=== PATIENT | male | born 1995 | race African-American/Black ===

== ENCOUNTER 2018-09-23 18:45 | Emergency (ER) | payer MEDICAID ==
[~2018-09-23] VITALS: Ht 172.7 cm; Wt 68.2 kg
[2018-09-23] MEDS ORDERED: LIDOCAINE-MPF 1%, 5ML ONE (18:57)
[2018-09-23] MEDS ORDERED: DIPH,PERTUSS(ACELL),TET VAC/PF 0.5 ML IM-VACC ONE ×2 (18:58→19:00)
--- NOTE | 2018-09-23 18:59 | NUR ---
PT AMBULATING IN HOSPITAL HALLWAY TRYING TO FIND THE ED. DRIPPING BLOOD FROM LEFT HAND. HAND WRAPPED WITH GAUZE AND PT ESCORTED TO ROOM 39. BLEEDING STABALIZED AND HAND CLEANED BY EMT WITH SALINE. 3 LACERATIONS NOTED TO LEFT LATERAL KNUCKLE AREA. DISTAL CSM+
[2018-09-23] MEDS ORDERED: LIDOCAINE-MPF 1%, 5ML INFIL ONE (19:00)
--- NOTE | 2018-09-23 19:59 | NUR ---
EDPA LONG AT BEDSIDE PERFORMING SUTURES
[2018-09-23] MEDS ORDERED: BACITRACIN ZINC OINT 500U/GM, 0.9 GM ONE (20:00)
[2018-09-23 20:25] VITALS: BP 156/102
--- NOTE | 2018-09-23 20:35 | NUR ---
EDPA LONG NOTIFIED OF PT BP. PT VERBALIZES HE IS CURRENTLY HIGH ON COCAINE.
--- NOTE | 2018-09-23 20:42 | NUR ---
PT REFUSING XRAY OF L HAND.
== END 2018-09-23 20:59 | disposition home or self-care (01) ==
LOC: ED 20:39
DX: S61.412A Laceration without foreign body of left hand, initial encounter (principal); F17.210 Nicotine dependence, cigarettes, uncomplicated; W18.30XA Fall on same level, unspecified, initial encounter; Y93.89 Activity, other specified; Y92.410 Unspecified street and highway as the place of occurrence of the external cause; Y99.8 Other external cause status
CPT/HCPCS: 12002; 90471; 90715; 99284